=== PATIENT | female | born 1955 | race Caucasian/White ===

== ENCOUNTER 2017-07-16 06:57 | Day surgery (SDC) | payer MEDICARE, OTHER ==
[2017-07-14 11:40] LABS: BASOPHILS % (AUTO) 0.4 % (0-1); EOSINOPHILS # (AUTO) 0.4 X10'3 (0-0.9); LYMPHOCYTES # (AUTO) 0.6 X10'3 (1.1-4.8); LYMPHOCYTES % (AUTO) 7.1 % (21-51); MEAN CORPUSCULAR HEMOGLOBIN 36.7 PG (27.0-31.0); MEAN CORPUSCULAR HGB CONC 34.4 % (33.0-36.5); MEAN CORPUSCULAR VOLUME 106.6 FL (78-98); MEAN PLATELET VOLUME 8.2 FL (7.4-10.4); MONOCYTES # (AUTO) 0.6 X10'3 (0-0.9); MONOCYTES % (AUTO) 6.7 % (2-12); NEUTROPHILS # (AUTO) 7.3 X10'3 (1.8-7.7); NEUTROPHILS % (AUTO) 81.8 % (42-75); PRE OP HEMATOCRIT 34.1 % (35.0-45.0); PRE OP HEMOGLOBIN 11.8 g/dL (12.0-16.0); PRE OP PLATELET COUNT 289 X10'3 (140-440); RED CELL DISTRIBUTION WIDTH 21.1 % (11.5-14.5)
[2017-07-14 11:50] LABS: PRE OP INR 0.9 INR; PRE OP PROTIME 9.4 SECONDS (9.0-12.0)
[2017-07-14 11:57] LABS: ALBUMIN 3.9 G/DL (3.4-5.0); ALBUMIN/GLOBULIN RATIO 1.1 (1.1-1.5); ALKALINE PHOSPHATASE 92 IU/L (46-116); BLOOD UREA NITROGEN 54 MG/DL (7-18); BUN/CREATININE RATIO 4.4 (6.6-38.0); CHLORIDE 82 MMOL/L (99-107); PRE OP ALT 21 U/L (30-65); PRE OP ANION GAP 14 (8-16); PRE OP AST 8 U/L (10-37); PRE OP BILIRUB, TOTAL 0.4 MG/DL (0.0-1.0); PRE OP GLUCOSE 97 MG/DL (70-104); PRE OP POTASSIUM 3.8 MMOL/L (3.4-5.1); TOTAL CARBON DIOXIDE 29.4 MMOL/L (24-32); TOTAL PROTEIN 7.4 G/DL (6.4-8.2); eGFR 3 ML/MIN
[2017-07-14 11:59] LABS: PRE OP SODIUM 125 MMOL/L (135-145)
[~2017-07-16] VITALS: Ht 160 cm; Wt 55.2 kg
[~2017-07-16 06:57] MED LIST: ASPI-1265 PO; BIOT5CAP3 PO; CLON-529 PO; DOCUMENT DATE & TIME OF BETA-BLOCKER PO ONE; FOLI0.8T19 PO; LISI-600 PO; METO-467 PO; ONDA4TAB6 PO; PHO667C PO; PRAM0.253 PO; PROSTAT; SEVE800T8 PO; ceFAZolin 2gm in dextrose, iso 100 ML IV ONE; famotidine 20mg tablet PO ONE; normal saline 1000ml 1,000 ML IV SCH; ringers solution, lacted 1,000 ML IV SCH
[2017-07-16 07:30] VITALS: BP 116/79
[2017-07-16] MEDS ORDERED: LIDOcaine 1% (10mg/ml) 2ml vial ONE (08:06)
[2017-07-16] MEDS ORDERED: BUPIVAcaine/PF 2.5 mg/ml (0.25%) 30ml vial IJ ONE (10:22)
[2017-07-16] MEDS ORDERED: mupirocin 2% ointment 22GM TP ONE (10:23)
[2017-07-16] MEDS ORDERED: ceFAZolin 1000mg inj IR ONE (10:24)
[2017-07-16] MEDS ORDERED: heparin 10,000 units/1 ML INJ IV ONE (10:25)
[2017-07-16 10:41] LABS: ISTAT HGB 9.9 g/dl (12.0-16.0); ISTAT IONIZED CALCIUM 1.16 mmol/L (1.03-1.32); ISTAT K 4.2 mmol/L (3.5-5.1); POC BUN/CREATININE RATIO 4.3 (6.6-38.0)
[2017-07-16] MEDS ORDERED: sevoflurane 250ml liquid IH ONE (10:45)
[2017-07-16] MEDS ORDERED: fentaNYL/PF 50MCG/1 ML 2ML syringe ONE (10:52)
[2017-07-16] MEDS ORDERED: midazolam 2 mg/2 ml injection ONE (10:52)
[2017-07-16] MEDS ORDERED: propofol inj 20 ML IV ONE (11:34)
[2017-07-16] MEDS ORDERED: rocuronium 10mg/ml inj IV ONE (11:34)
[2017-07-16] MEDS ORDERED: dexamethasone sod phosphate 4mg/ml inj. ONE (11:34)
[2017-07-16] MEDS ORDERED: LIDOcaine 2% (20mg/ml) 5ml vial ONE (11:34)
[2017-07-16 12:00] VITALS: BP 170/98
[2017-07-16] MEDS ORDERED: ondansetron/PF 4mg/2ml inj IV PRN (12:05)
[2017-07-16] MEDS ORDERED: normal saline 1000ml 1,000 ML IV ONE (12:05)
[2017-07-16] MEDS ORDERED: morphine 2 MG/ML inj. syringe IV PRN (12:05)
[2017-07-16 12:10] VITALS: BP_SYST 168; BP_SYST 170; BP_DIAS 95; BP_DIAS 98
[2017-07-16 12:20] VITALS: BP 174/104
[2017-07-16 12:21] LABS: ISTAT CREATININE 11.6 mg/dL (0.6-1.1); ISTAT HGB 9.9 g/dl (12.0-16.0); ISTAT IONIZED CALCIUM 1.15 mmol/L (1.03-1.32); POC BUN/CREATININE RATIO 4.8 (6.6-38.0)
[2017-07-16 12:30] VITALS: BP 160/97
[2017-07-16 12:40] VITALS: BP 161/95
== END 2017-07-16 12:50 | disposition short-term general hospital (02) ==
LOC: PAS 06:57
PROVIDERS: ATTEND Surgery
DX: Z46.82 Encounter for fitting and adjustment of non-vascular catheter (principal); N18.5 Chronic kidney disease, stage 5; Z90.710 Acquired absence of both cervix and uterus; Z88.8 Allergy status to other drugs, medicaments and biological substances
CPT/HCPCS: 36415; 49999; 80047; 80053; 82948; 85025; 85610; 85730; 93005; A6449; C1750; J0690; J1100; J1644; J2001; J2250; J2704; J3010; J3490; J7030; A7000; J7120

== ENCOUNTER 2017-07-16 12:49 | Day surgery (SDC) | payer MEDICARE, OTHER ==
[2017-07-16] VITALS (10 sets, daily range): BP systolic 130–175; BP diastolic 75–99
[~2017-07-16 12:49] MED LIST changes: +BUPIVAcaine/PF 2.5 mg/ml (0.25%) 30ml vial ONE; -DOCUMENT DATE & TIME OF BETA-BLOCKER PO ONE; +ceFAZolin 1000mg inj ONE; -ceFAZolin 2gm in dextrose, iso 100 ML IV ONE; -famotidine 20mg tablet PO ONE; +heparin sodium, porcine/PF 100unit/ml 5ML syringe ONE; +mupirocin 2% ointment 22GM ONE; -normal saline 1000ml 1,000 ML IV SCH; -ringers solution, lacted 1,000 ML IV SCH
[2017-07-16] MEDS ORDERED: normal saline 1000ml 1,000 ML IV SCH (13:15)
[2017-07-16] MEDS ORDERED: LIDOcaine 1%/PF (10mg/ml) 5ml vial SQ ONE (15:45)
[2017-07-16] MEDS ORDERED: fentaNYL/PF 50MCG/1 ML 2ML syringe IV PRN (15:45)
[2017-07-16] MEDS ORDERED: heparin 1,000 units/ml 10ml inj ICATH ONE (15:45)
[2017-07-16] MEDS ORDERED: midazolam 2 mg/2 ml injection IV PRN (15:45)
[2017-07-16] MEDS ORDERED: LIDOcaine 1%/PF (10mg/ml) 5ml vial ONE (15:47)
[2017-07-16] MEDS ORDERED: midazolam 2 mg/2 ml injection ONE (15:51)
[2017-07-16] MEDS ORDERED: fentaNYL/PF 50MCG/1 ML 2ML syringe ONE (15:52)
== END 2017-07-16 18:00 | disposition home or self-care (01) ==
LOC: SSTAY O 12:49
PROVIDERS: ATTEND Radiology Diagnostic Radiology
DX: I12.9 Hypertensive chronic kidney disease with stage 1 through stage 4 chronic kidney disease, or unspecified chronic kidney disease (principal); N18.9 Chronic kidney disease, unspecified; Z90.89 Acquired absence of other organs; Z98.890 Other specified postprocedural states; Z90.710 Acquired absence of both cervix and uterus; Z90.49 Acquired absence of other specified parts of digestive tract; Z90.12 Acquired absence of left breast and nipple; Z79.82 Long term (current) use of aspirin; Z79.899 Other long term (current) drug therapy; Y83.8 Other surgical procedures as the cause of abnormal reaction of the patient, or of later complication, without mention of misadventure at the time of the procedure; Y92.89 Other specified places as the place of occurrence of the external cause; Z88.8 Allergy status to other drugs, medicaments and biological substances
CPT/HCPCS: 36558; 76937; 77001; 99152; 99153; A6219; A6257; A6402; A6449; C1750; C1894; J0690; J1642; J1644; J2001; J2250; J3010; J3490; J7030; A4620

== ENCOUNTER 2017-07-19 06:36 | Emergency (ER) | payer MEDICARE, OTHER ==
[~2017-07-19] VITALS: Ht 160 cm; Wt 56.0 kg
[~2017-07-19 06:36] MED LIST changes: -BUPIVAcaine/PF 2.5 mg/ml (0.25%) 30ml vial ONE; -ceFAZolin 1000mg inj ONE; -heparin sodium, porcine/PF 100unit/ml 5ML syringe ONE; -mupirocin 2% ointment 22GM ONE
[2017-07-19 07:37] LABS: BASOPHILS % (AUTO) 0.2 % (0-1); EOSINOPHILS # (AUTO) 0.2 X10'3 (0-0.9); EOSINOPHILS % (AUTO) 2.7 % (0-6); HEMATOCRIT 24.2 % (35.0-45.0); HEMOGLOBIN 8.4 g/dl (12.0-16.0); LYMPHOCYTES # (AUTO) 0.4 X10'3 (1.1-4.8); LYMPHOCYTES % (AUTO) 4.7 % (21-51); MEAN CORPUSCULAR HEMOGLOBIN 37.3 PG (27.0-31.0); MEAN CORPUSCULAR HGB CONC 34.9 % (33.0-36.5); MEAN CORPUSCULAR VOLUME 106.9 FL (78-98); MEAN PLATELET VOLUME 8.2 FL (7.4-10.4); MONOCYTES # (AUTO) 0.6 X10'3 (0-0.9); MONOCYTES % (AUTO) 7.1 % (2-12); NEUTROPHILS # (AUTO) 7.3 X10'3 (1.8-7.7); NEUTROPHILS % (AUTO) 85.3 % (42-75); PLATELET COUNT 172 X10'3 (140-440); RED BLOOD COUNT 2.26 X10'6 (4.20-5.60); RED CELL DISTRIBUTION WIDTH 18.1 % (11.5-14.5); WHITE BLOOD COUNT 8.6 X10'3 (4.5-11.0)
[2017-07-19 07:48] VITALS: BP 157/96
[2017-07-19 07:54] LABS: ALANINE AMINOTRANSFERASE 9 U/L (12-78); ALBUMIN 2.6 G/DL (3.4-5.0); ALBUMIN/GLOBULIN RATIO 0.9 (1.1-1.5); ALKALINE PHOSPHATASE 81 IU/L (46-116); ANION GAP 8 (8-16); ASPARTATE AMINO TRANSFERASE 13 U/L (10-37); BILIRUBIN,TOTAL 0.4 MG/DL (0.1-1.0); BLOOD UREA NITROGEN 37 MG/DL (7-18); BUN/CREATININE RATIO 4.4 (6.6-38.0); CALCIUM 8.1 MG/DL (8.5-10.1); CHLORIDE 86 MMOL/L (99-107); GLUCOSE 114 MG/DL (70-104); POTASSIUM 4.1 MMOL/L (3.5-5.1); SODIUM 125 MMOL/L (135-145); TOTAL CARBON DIOXIDE 31.3 MMOL/L (24-32); TOTAL PROTEIN 5.5 G/DL (6.4-8.2); eGFR 5 ML/MIN
== END 2017-07-19 10:00 | disposition home or self-care (01) ==
LOC: ER 06:37
DX: T82.838A Hemorrhage due to vascular prosthetic devices, implants and grafts, initial encounter (principal); I12.9 Hypertensive chronic kidney disease with stage 1 through stage 4 chronic kidney disease, or unspecified chronic kidney disease; N18.9 Chronic kidney disease, unspecified; Z99.2 Dependence on renal dialysis; Z88.8 Allergy status to other drugs, medicaments and biological substances; Z79.82 Long term (current) use of aspirin; Z79.899 Other long term (current) drug therapy
CPT/HCPCS: 36415; 80053; 85025; 86885; 86900; 86901; 99284

== ENCOUNTER 2017-07-19 11:56 | Emergency (ER) | payer MEDICARE, OTHER ==
[~2017-07-19] VITALS: Ht 160 cm; Wt 58.0 kg
[2017-07-19 14:53] VITALS: BP 134/91
== END 2017-07-19 14:54 | disposition home or self-care (01) ==
LOC: ER 11:56
DX: T82.838A Hemorrhage due to vascular prosthetic devices, implants and grafts, initial encounter (principal); I12.0 Hypertensive chronic kidney disease with stage 5 chronic kidney disease or end stage renal disease; N18.6 End stage renal disease; Z99.2 Dependence on renal dialysis; Z88.8 Allergy status to other drugs, medicaments and biological substances; Z79.82 Long term (current) use of aspirin; Z79.899 Other long term (current) drug therapy
CPT/HCPCS: 99281; 99283